=== PATIENT | male | born 1975 ===

== ENCOUNTER → 2018-05-19 21:30 | Outpatient (REF) | payer OTHER, SELFPAY ==
[2018-05-20 00:06] LABS: Hepatitis B Surface Antigen NEGATIVE s/c (NEGATIVE)
[2018-05-20 00:25] LABS: Hep C Virus Ab w/Reflex Quant NEGATIVE s/c (NEGATIVE)
[2018-05-20 01:12] LABS: Urine N gonorrhoeae NOT DETECTED
[2018-05-20 01:31] LABS: Urine Chlamydia NOT DETECTED
[2018-05-23 06:19] LABS: RPR Screen Nonreactive (Nonreactive)
[2018-05-23 14:11] LABS: Hepatitis B Core Antibody Nonreactive (Nonreactive)
[2018-05-23 15:03] LABS: Hepatitis B Surf Ab Qualitativ Nonreactive (Nonreactive)
[2018-05-23 18:46] LABS: HIV Ag/Ab, 4th Gen Nonreactive (Nonreactive)
[2018-05-24 14:44] LABS: HSV 2 IGG AB < 0.90 index (< 0.90); HSV1IGG < 0.90 index (< 0.90)
== END ==
LOC: LAB 21:30
PROVIDERS: Visit Provider Family Medicine
DX: Z20.2 Contact with and (suspected) exposure to infections with a predominantly sexual mode of transmission (principal)
CPT/HCPCS: 36415; 86592; 86695; 86696; 86703; 86704; 86706; 86803; 87340; 87491; 87591